=== PATIENT | male | born 1975 | race Caucasian/White ===

== ENCOUNTER 2018-01-27 12:00 | Emergency (ER) | payer MEDICAID ==
[~2018-01-27] VITALS: Ht 182.9 cm; Wt 93.1 kg
[2018-01-27 12:05] VITALS: BP 111/79
--- NOTE | 2018-01-27 13:35 | NUR ---
PT AMBULATED TO ER BED 8
--- NOTE | 2018-01-27 14:00 | NUR ---
PT BIB SELF FOR ABD PAIN AND DIARRHEA X1 DAY. PT REPORTS PULSING PAIN AT 8/10 IN EPIGASTRIC REGION AND BLOATING IN LOWER ABDOMEN. ABD IS DISTENDED, FIRM, TENDER TO TOUCH, WITH BOWEL SOUNDS ACTIVE X4 QUADRANTS. PATIENT DENIES FEVER, N/D. ER MD NOTIFIED OF PT CONDITION. SAFETY PRECAUTIONS IN PLACE, WILL CONTINUE TO MONITOR.
[2018-01-27] MEDS ORDERED: NACL 0.9% 1,000 ML IV SCH (14:05)
[2018-01-27 14:48] LABS: BASOPHILS % (AUTO) 0.1 % (0.0-2.0); EOSINOPHILS % (AUTO) 0.2 % (0.0-4.0); HEMATOCRIT 48.5 % (36-52); HEMOGLOBIN 16.4 g/dL (12.0-18.0); LYMPHOCYTES # (AUTO) 0.6 K/uL (2.0-11.5); LYMPHOCYTES % (AUTO) 8.7 % (20.5-51.1); MEAN CORPUSCULAR HEMOGLOBIN 30 pg (27-31); MEAN CORPUSCULAR HGB CONC 34 g/dL (33-37); MEAN CORPUSCULAR VOLUME 88.5 fL (80-94); MONOCYTES # (AUTO) 0.5 K/uL (0.8-1.0); MONOCYTES % (AUTO) 6.9 % (1.7-9.3); NEUTROPHILS # (AUTO) 5.8 K/uL (1.8-7.7); NEUTROPHILS % (AUTO) 84.1 % (42.2-75.2); PLATELET COUNT (AUTO) 178 K/uL (140-450); RED BLOOD CELL COUNT(AUTO) 5.48 MIL/uL (4.20-6.10); RED CELL DISTRIBUTION WIDTH 13.5 % (11.6-13.7); WHITE BLOOD COUNT (AUTO) 6.9 K/uL (4.8-10.8)
[2018-01-27 15:12] LABS: BILIRUBIN,URINE NEGATIVE (NEGATIVE); BLOOD, URINE NEGATIVE (NEGATIVE); COLOR,URINE YELLOW (YELLOW); LEUKOCYTE ESTERASE ,URINE NEGATIVE (NEGATIVE); NITRITE, URINE NEGATIVE (NEGATIVE); UGLUCOSE NEGATIVE (NEGATIVE)
[2018-01-27 15:13] LABS: APPEARANCE,URINE CLOUDY (CLEAR)
[2018-01-27 15:20] LABS: ANION GAP 15.9 (8-16); CARBON DIOXIDE 22.1 mmol/L (21-32); CREATININE 0.9 mg/dL (0.7-1.3)
[2018-01-27 15:27] LABS: ALBUMIN 3.7 g/dL (3.4-5.0); TOTAL BILIRUBIN 0.6 mg/dL (0.0-1.0)
[2018-01-27] MEDS ORDERED: MORPHINE SULFATE 4 MG/ML SYR IVP ONE (16:05)
[2018-01-27] MEDS ORDERED: KETOROLAC 30 MG/ML VIAL IVP ONE (16:05)
[2018-01-27] MEDS ORDERED: ONDANSETRON 4 MG/2 ML VIAL IVP ONE (16:05)
--- NOTE | 2018-01-27 16:37 | NUR ---
PT GOING TO CT NOW
[2018-01-27 18:00] VITALS: BP 119/75
--- NOTE | 2018-01-27 18:00 | NUR ---
Patient discharged with v/s stable. Written and verbal after care instructions given and explained. Patient alert, oriented and verbalized understanding of instructions. Ambulatory with steady gait. All questions addressed prior to discharge. ID band removed. Patient advised to follow up with PMD. Rx of FAMOTIDINE 40MG, CIPROFLOXACIN 500MG, OMEPRAZOLE 20MG AND FLAGYL 500MG given. Patient educated on indication of medication including possible reaction and side effects. Opportunity to ask questions provided and answered.
== END 2018-01-27 18:00 | disposition home or self-care (01) ==
LOC: MED 12:00
DX: K29.70 Gastritis, unspecified, without bleeding (principal); K52.9 Noninfective gastroenteritis and colitis, unspecified
CPT/HCPCS: 36415; 74177; 80053; 81003; 83690; 85025; 96361; 96374; 96375; 99284; J1885; J2270; J2405; Q9967; J7030

== ENCOUNTER 2023-08-23 14:53 | Emergency (ER) | payer MEDICAID, OTHER ==
[~2023-08-23] VITALS: Ht 177.8 cm; Wt 99.8 kg
[2023-08-23 15:03] VITALS: BP 150/78; PULSE 90; RESP 22; TEMP 98.6; O2SAT 98
[2023-08-23] MEDS: KETOROLAC 30 MG/ML VIAL IM ONE (15:43)
[2023-08-23] MEDS ORDERED: NAPR-1704 PO (16:49)
[2023-08-23] MEDS ORDERED: CAPS1ADH5 TP (16:49)
[2023-08-23] MEDS ORDERED: DICL100G32 TP (16:49)
== END 2023-08-23 17:23 | disposition home or self-care (01) ==
LOC: MED 14:53
DX: M79.642 Pain in left hand (principal); M79.641 Pain in right hand; Z79.1 Long term (current) use of non-steroidal anti-inflammatories (NSAID); Z79.899 Other long term (current) drug therapy
CPT/HCPCS: 73110; 96372; 99283; J1885